=== PATIENT | female | born 1965 | race Caucasian/White ===

== ENCOUNTER 2018-11-07 23:30 | Observation (INO) | payer OTHER ==
[~2018-11-07] VITALS: Ht 172.7 cm; Wt 86.6 kg
[~2018-11-07 23:30] MED LIST: MVI; TOPROL XL50 MG PO; TYLENOL 500MG500 MG PO; [UNRECOGNIZED DRUG - OTHER]
[2018-11-07] MEDS ORDERED: NATURAL MAGNES200 MG PO (23:51)
[2018-11-07] MEDS ORDERED: B COMPLEX #11 TA1 PO (23:51)
[2018-11-08] VITALS (9 sets, daily range): BP systolic 107–124; BP diastolic 59–68; PULSE 63–93; TEMP 98–99.9
[2018-11-08 00:01] LABS: BASO # 0.1 (0.0-0.2); BASO % 0.3 % (0.0-2.0); EOS % 0.1 % (0-4.0); GRAN # 15.2 (1.4-6.5); GRAN % 89.4 % (42.2-75.2); HEMATOCRIT 40.2 % (37.0-47.0); HEMOGLOBIN 13.6 g/dl (12.5-16.0); LYMPH # 1.1 (1.2-3.4); LYMPH % 6.7 % (20.0-51.0); MEAN CELL VOLUME 90 fl (80.0-100.0); MEAN CORPUSCULAR HEMOGLOBIN 30 pg (27.0-31.0); MEAN CORPUSCULAR HGB CONC 34 g/dl (33.0-37.0); MONO # 0.5 (0.1-0.6); PLATELET COUNT 255 K/mm3 (130-400); RED BLOOD COUNT 4.49 M/mm3 (4.10-5.30); REDCELL DISTRIBUTION WIDTH-CV 12.6 % (11.5-14.5)
[2018-11-08 00:16] LABS: ALBUMIN 4.6 gm/dL (3.5-5.0); BILIRUBIN,TOTAL 0.7 mg/dL (0.0-1.0); C-REACTIVE PROTEIN 1.2 mg/dL (0.0-0.9); CALCIUM 9.4 mg/dL (8.4-10.2); CREATININE, serum 0.75 (0.52-1.25); POTASSIUM 4.2 mmol/L (3.4-5.0); TOTAL PROTEIN 8.2 gm/dL (6.4-8.2)
[2018-11-08 00:48] LABS: COLLECTION METHOD CLEAN CATCH
[2018-11-08 01:06] LABS: HYALINE CAST >12 /lpf; MUCOUS Present /lpf; PH 5 (5-8); SQUAMOUS EPITHELIAL 0-2 /hpf; URINE APPEARANCE Hazy; URINE BACTERIA None Seen /hpf; URINE BILIRUBIN Negative (NEGATIVE); URINE BLOOD 1+ (NEGATIVE); URINE COLOR Amber; URINE GLUCOSE Negative (NEGATIVE); URINE KETONE 2+ (NEGATIVE); URINE LEUKOCYTE ESTERASE Negative (NEGATIVE); URINE NITRATE Negative (NEGATIVE); URINE PROTEIN(semi-quant) 1+ (NEGATIVE); URINE RBC 20-50 /hpf; URINE UROBILINOGEN Negative (NEGATIVE)
--- NOTE | 2018-11-08 02:30 | NUR ---
Admitted to room 328 from ER. Assisted to bathroom. Oriented to room and policy. Admission assessment complete. VS stable. Rating pain 2/10 to right side abdomen. LR initiated at 150ml/hr to Left Hand 20g. plan of care discussed for NPO status and surgical intervention this AM. Verbalizes understanding. Denies questions or concerns. Family at bedside. Call light within reach. WIll monitor.
[2018-11-08] MEDS ORDERED: POTASSIUM GLUC595 M1 (02:51)
--- NOTE | 2018-11-08 06:09 | NUR ---
C/O nausea as well as pain to right side abdomen. Dilaudid given per dr order as well as Zofran. LR infusing at 150ml/hr to left hand. Has remained NPO since admission. Family at bedside. WIll monitor.
--- NOTE | 2018-11-08 07:03 | NUR ---
REPORT FROM BALJEET XIONG.
--- NOTE | 2018-11-08 09:39 | NUR ---
SW met with patient to discuss discharge planning. Patient lives independently at home with her . Patient's reports her normal PCP is no longer in [place] and she is working to get set up with another PCP. Patient's primary pharmacy is [facility]. Patient does not use any DME or home health services. Patient is independent with all ADLs. Patient does not have a DPOA-HC and she is not interested in completing one at this time. SW does not anticipate any discharge needs.
--- NOTE | 2018-11-08 09:54 | NUR ---
PT UP INDEPENDENTLY IN ROOM AND SHOWER, RETURNED TO BED AFTER SHOWERING DR. ANDRADE IN TO SEE PATEINT THIS AM. PLAN ON SURGERY LATER THIS PM.
--- NOTE | 2018-11-08 10:51 | NUR ---
PT TO SURGERY.
--- NOTE | 2018-11-08 10:56 | NUR ---
REPORT TO CHAR BURNS CRNA.
--- NOTE | 2018-11-08 13:02 | NUR ---
PT TO ROOM 328 PER BED WITH REPORT FROM JANAK XIONG. @ 7201. PATIENT IS DROWSEY BUT AROUSES TO VERBAL, PT IS A/O X3 INCISION SITES CLOSED WITH SWIFTSET CDI. FAMILY AT BEDSIDE.
--- NOTE | 2018-11-08 14:28 | NUR ---
PT UP TO BR VOIDED AND RETURNED TO BED. IV DISCONTINUED. PT ORDERED LUNCH AND PLAN ON DISCHARGE AFTER EATING.
--- NOTE | 2018-11-08 15:42 | NUR ---
DISCHARGE INSTRUCTIONS REVIEWED WITH PATIENT AND FAMILY, QUESTIONS ANSWERED. TAKEN BY WHEEL CHAIR TO FRONT BY STAFF.
== END 2018-11-08 15:44 | disposition home or self-care (01) ==
LOC: COL.ER 23:30 → JCC 11-08 02:00 → EDBEDREQ 11-08 02:07 → JCC 11-08 15:44
PROVIDERS: Emergency Medicine; ADMIT Surgery
DX: K35.80 Unspecified acute appendicitis (principal); Z90.710 Acquired absence of both cervix and uterus; Z79.899 Other long term (current) drug therapy
CPT/HCPCS: G0378; J1100; J1170; J1885; J2405; J2543; J2550; J2704; J2710; J3010; J7030; J7120; Q9967

== ENCOUNTER → 2021-11-09 | Outpatient (CLI) | payer OTHER ==
[~2021-11-09] MED LIST changes: +B COMPLEX #11 TA1 PO; +NATURAL MAGNES200 MG PO; +POTASSIUM GLUC595 M1
== END ==
LOC: MC.RAD 13:52
DX: N60.12 Diffuse cystic mastopathy of left breast (principal)